=== PATIENT | female | born 1985 | race Two or more races ===

== ENCOUNTER 2017-06-05 22:49 | Emergency (ER) | payer OTHER ==
[~2017-06-05] VITALS: Ht 180.3 cm; Wt 54.8 kg
[~2017-06-05 22:49] MED LIST: FLEXERIL10 MG PO; MOTRIN600 MG PO; PHENTERMINE H37.5 MG PO; ULTRAM50 MG PO
[2017-06-06 01:02] VITALS: BP 152/80
== END 2017-06-06 01:04 | disposition home or self-care (01) ==
LOC: EME 22:49 → EXP 22:49
DX: G43.909 Migraine, unspecified, not intractable, without status migrainosus (principal); F17.200 Nicotine dependence, unspecified, uncomplicated
CPT/HCPCS: 99281; 99284; J1885; J8540